=== PATIENT | female | born 1975 | race Caucasian/White ===

== ENCOUNTER → 2017-10-19 | Outpatient (CLI) | payer OTHER ==
[~2017-10-19] MED LIST: LEVO50TA80 PO; MIL50PT PO; MILN1TAB2 PO; SUMA100T32 PO; TRAM-420 PO
--- NOTE | 2017-10-20 08:48 | RADIOLOGY IMAGING REPORT ---
FACILITY: [facility] - [place] PATIENT NAME: KRISTA NAPIER : [id number] MR: [id number] V: [id number] EXAM DATE: ORDERING PHYSICIAN: MARGARITO DECKER TECHNOLOGIST: Ileana Mendiola PROCEDURE:BILATERAL DIGITAL SCREENING MAMMOGRAM WITH CAD ASSISTED INTERPRETATION & 3D TOMOSYNTHESIS COMPARISON:Prior mammograms 08/16/14 INDICATIONS:SCREENING IMPLANTS FINDINGS: There are bilateral subpectoral breast implants in place. There is no evidence of implant rupture or leakage. Moderately dense fibroglandular tissue is seen anterior to the implant. There is a small grouping of round calcifications in the upper outer quadrant of the Left breast not appreciated on the prior study for which Spot magnification view is recommended. DIAGNOSTIC CATEGORY 0--INCOMPLETE: NEED ADDITIONAL IMAGING EVALUATION. RECOMMENDATIONS: ADDITIONAL MAMMOGRAPHIC VIEWS REQUIRED: LEFT BREAST. IMPRESSION: BIRADS 0: Incomplete. Additional views of the Left breast recommended as described. Dictated by: Maryann Gonzalez M.D. on 10/19/2017 at 17:10 Transcribed by: KARY on 10/20/2017 at 7:56 Approved by: Maryann Gonzalez M.D. on 10/20/2017 at 8:48 [facility]
== END ==
LOC: MAMO 01:49
PROVIDERS: ATTEND Family Medicine
DX: R92.2 Inconclusive mammogram (principal)
CPT/HCPCS: 77063; 77067

== ENCOUNTER → 2017-11-08 | Outpatient (CLI) | payer OTHER ==
--- NOTE | 2017-11-09 09:03 | RADIOLOGY IMAGING REPORT ---
FACILITY: [facility] PATIENT NAME: KRISTA NAPIER : [id number] MR: [id number] V: [id number] EXAM DATE: [id number] ORDERING PHYSICIAN: MARGARITO DECKER TECHNOLOGIST: Stephie Miles PROCEDURE:LEFT DIGITAL DIAGNOSTIC MAMMOGRAM WITH CAD ASSISTED INTERPRETATION COMPARISON:None. INDICATIONS:Calcifications upper outer quadrant of Left breast. FINDINGS: The patient returns for Spot magnification views with implant displacement in the Left CC & MLO projections. There are several small loosely scattered round calcifications in the upper outer quadrant of the Left breast. There is no evidence of branching or pleomorphism. These were not evident on the prior mammogram from 08/16/14 although there was a significant difference in mammographic technique from the prior equipment to the current study. A 6 month follow-up Left mammogram is recommended to evaluate these calcifications unless clinical findings warrant more immediate attention. DIAGNOSTIC CATEGORY 3--PROBABLY BENIGN FINDING. RECOMMENDATIONS: SIX MONTH FOLLOW-UP DIAGNOSTIC MAMMOGRAM: LEFT BREAST. IMPRESSION: BIRADS 3: Probably benign finding. A 6 month follow-up diagnostic Left mammogram is recommended as described. Dictated by: Maryann Gonzalez M.D. on 11/08/2017 at 16:30 Transcribed by: KARY on 11/09/2017 at 8:26 Approved by: Maryann Gonzalez M.D. on 11/09/2017 at 9:03 [facility]
== END ==
LOC: MAMO 04:29
PROVIDERS: ATTEND Family Medicine
DX: R92.8 Other abnormal and inconclusive findings on diagnostic imaging of breast (principal)
CPT/HCPCS: 77061; 77065